=== PATIENT | male | born 1990 | race Caucasian/White ===

== ENCOUNTER 2019-08-27 01:22 | Observation (INO) ==
[2019-08-27] MEDS ORDERED: SODIUM CHLORIDE 0.9% 1000ML 1,000 ML IV SCH (01:45)
--- NOTE | 2019-08-27 01:53 | Emergency Department Note ---
Impression & Plan Altered mental status, Leukocytosis, Hyperglycemia, Elevated creatine kinase level ED Provider Note NAME: VIK CALDWELL AGE: 28 SEX: M ARRIVES VIA: Ambulance INFORMANT: [Patient] EMS, police ED PROVIDER(S): Quique Deleon MD CHIEF COMPLAINT: Altered mental status PLAN: Disposition: Admitted Condition: [Good] MEDICAL DECISION MAKING: The patient presented with altered mental status. He had hypoglycemia noted per EMS. The patient. He seemed to be responding to internal stimuli. Patient ad mitted to drinking a lot of alcohol and then "going for a run". He was found 17 miles from his residence. The patient was mildly hypothermic. Warming blanket was applied. He was hydrated. Chemistry panel and toxicology screens performed. Head CT and chest x-ray performed. CT head was negative and chest x-ray was unremarkable. CBC revealed a moderate leukocytosis. The patient had a mildly elevated but overall low alcohol level. Urine toxicology screen was pending. Tylenol and salicylate levels negative. Patient did have a mild elevation of his total CK. He was hydrated and observed. He was warmed. Given the patient's abnormal behavior and laboratory abnormalities further management in the hospital was deemed appropriate. Triage Nursing notes reviewed and agree them. [Additional history obtained from] EMS, police Vital Signs: reviewed and remarkable for [no significant abnormalities] Differential diagnosis: Infection, hypoglycemia, hypothermia, electrolyte abnormalities, overdose, toxicologic, cardiac sources, intracerebral event, neurologic, trauma, psychiatric as well as other pathologies. ER treatment provided: Warming blanket Saline hydration Diagnostics interpreted by me: ECG: Rate: 74 Rhythm:Normal sinus [place]:Normal QRS:Normal ST segements:No elevation or depression Other:No PACs or PVCs Cardiac Monitoring: Cardiac monitoring ordered by me: The patient was placed on continuous cardiac monitoring and observed. It revealed a normal sinus rhythm at 77 beats per minute without ectopy or evidence of dysrhythmia. Laboratory studies: [See below] CBC revealed leukocytosis of 17,000. Mild elevation of total CK. Mild hyperglycemia on chemistry panel. Urinalysis pending. Urine toxicology screen pending. Imaging studies: Chest x-ray. Findings: A chest x-ray was performed and revealed no pneumothorax, effusion, infiltrate, pulmonary edema, free air under the diaphragm, or wide mediastinum. Impression: No acute disease. Head CT: A noncontrast CT scan of the head was performed and was negative for tumor, fracture, intracranial hemorrhage, or other acute pathology. Consultation(s): Consultation was made with Dr. Hall of internal medicine. The patient was evaluated by the team in the emergency department admitted for further management. HPI: The patient is a 28 year old male who presents to the Emergency Room with complaints of altered mental status. Along the roadway by police. He police stated that they did search his residence and noted a lot of alcohol but no drug paraphernalia. The patient denied any trauma. He states he has been in good health recently. 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 Please note that the manager field investigations at the stated that he has been acting unusual over the last few weeks. He has been walking around on the rooftops and seemed to be arguing with himself. He was given oral glucose. The patient was uncooperative. Current pain is rated as 0/10. History is limited secondary to altered mental status. ROS: Patient denies headache, shortness of breath, chest pain, breathing difficulty, abdominal pain, vomiting, extremity pain, or other complaints. ROS is limited secondary to mental status. PAST MEDICAL HISTORY:Patient denies PAST SURGICAL HISTORY:Patient denies FAMILY HISTORY:Patient denies SOCIAL HISTORY:Residing at a motel currently. Drinks alcohol. HOME MEDICATIONS:Denies ALLERGIES:No known drug allergies VITALS:[See Below] PHYSICAL EXAMINATION: GENERAL: Awake, alert, mildly agitated-appearing, in no distress HENT: Normocephalic, atraumatic. Oropharynx unremarkable. EYES: Normal conjunctiva. Sclera non-icteric. NECK: Inspection normal. Non-tender. Supple. No nuchal rigidity. FROM. No masses. RESPIRATORY: Clear to auscultation. No wheezes. No rales. Normal respiratory effort. CARDIAC: Normal rate. Normal rhythm. No murmurs. No rubs. Extremities cool but well perfused. Pulses equal. No JVD. GI: Soft, non-distended. No tenderness to palpation. No rebound or guarding. No masses. RECTAL: Deferred. MUSCULOSKELETAL: Atraumatic except for an abrasion noted on the right great toe, plantar aspect. Chest examination reveals no tenderness. The back is symmetrical on inspection without obvious abnormality. There is no CVA tenderness to palpation. No joint edema. LOWER EXTREMITIES: Calves are equal size bilaterally and non-tender. No edema. No discoloration. NEURO: Altered sensorium. No sensory or motor deficits noted. GCS 15. SKIN: Very cool to the touch. No rash or jaundice noted. PSYCH: Inflated mood, labile affect. Nonlinear thought process. Responding to internal stimuli. ED COURSE: [Critical Care:] [None] Quique Deleon MD Past Med/Surg History Social History Feels Safe at Home: Yes Smoking Status: Current some day smoker Allergies Allergies Allergy/AdvReac Type Severity Reaction Status Date / Time No Known Allergies Allergy Unverified 08/27/19 01:43 Home Meds Home Medications Medication Instructions Recorded Confirmed No Known Home Medications 08/27/19 08/27/19 Results & Data (ED) Vital Signs Vital Signs - 24 hr 08/27/19 01:33 08/27/19 01:47 08/27/19 02:22 Pulse Rate 76 Pulse Rate [Right Finger] 67 Respiratory Rate 16 16 Respiratory Depth Normal Blood Pressure 106/69 Blood Pressure [Right Arm] 118/70 Blood Pressure Mean 81 Blood Pressure Mean [Right Arm] 86 Blood Pressure Position Lying Blood Pressure Position [Right Arm] Lying Pulse Oximetry 99 96 100 Oxygen Delivery Method Room Air Room Air Room Air Sepsis Recent Fever Within 48 Hours No Sepsis New/Unexplained Change in Mental Status No Sepsis Action Taken by Nursing No Action Required Laboratory Data Result diagrams: 08/27/19 01:58 08/27/19 01:58 Lab Results 08/27/19 08/27/19 08/27/19 Range/Units 01:29 01:58 01:58 WBC 17.75 H (4.8-10.8) K/uL RBC 4.84 (4.7-6.1) M/uL Hgb 14.0 (14.0-18.0) g/dL Hct 41.1 L (42-52) % MCV 84.9 (80-100) fL MCH 28.9 (25-34) pg MCHC 34.1 (32-36) g/dL RDW Std Deviation 40.4 (36.4-46.3) fL RDW Coeff of Angelina 13.1 (11.5-14.5) % Plt Count 192 (130-400) K/uL MPV 10.7 H (7.4-10.4) fL Immature Gran % (Auto) 0.4 % Neut % (Auto) 87.0 % Lymph % (Auto) 8.4 % [place] % (Auto) 3.9 % Eos % (Auto) 0.1 % Baso % (Auto) 0.2 % Immature Gran # (Auto) 0.07 H (0.00-0.02) K/uL Neut # (Auto) 15.45 H (1.4-6.5) K/uL Lymph # (Auto) 1.49 (1.2-3.4) K/uL [place] # (Auto) 0.69 H (0.11-0.59) K/uL Eos # (Auto) 0.02 (0-0.5) K/uL Baso # (Auto) 0.03 (0-0.2) K/uL Sodium 132 L (136-145) mmol/L Potassium 3.3 L (3.5-5.1) mmol/L Chloride 102 (98-107) mmol/L Carbon Dioxide 22 (21-32) mmol/L Anion Gap 8.0 (3-11) BUN 16 (7-18) mg/dl Creatinine 1.02 (0.6-1.4) mg/dl Est Cr Clr Drug Dosing 113.7 ml/min Est GFR ( Amer) 113.8 Est GFR (Non-Af Amer) 98.2 BUN/Creatinine Ratio 16.0 (10-20) Glucose 158 H (70-99) mg/dl POC Glucose 126 H (70-99) mg/dl Calcium 8.4 L (8.5-10.1) mg/dl Magnesium 2.0 (1.8-2.4) mg/dl Total Bilirubin 0.7 (0.2-1) mg/dl AST 40 H (15-37) U/L ALT 34 (12-78) U/L Alkaline Phosphatase 85 (45-117) U/L Total Creatine Kinase 547 H (39-308) U/L Troponin I < 0.015 (0-0.045) ng/ml Total Protein 7.2 (6.4-8.2) gm/dl Albumin 4.1 (3.4-5.0) gm/dl Globulin 3.1 (2.5-4.0) gm/dl Albumin/Globulin Ratio 1.3 (0.9-2) Salicylates (2.8-20) mg/dl Acetaminophen (10-30) ug/ml Ethyl Alcohol mg/dL (0-3) mg/dl 08/27/19 08/27/19 Range/Units 01:58 01:58 WBC (4.8-10.8) K/uL RBC (4.7-6.1) M/uL Hgb (14.0-18.0) g/dL Hct (42-52) % MCV (80-100) fL MCH (25-34) pg MCHC (32-36) g/dL RDW Std Deviation (36.4-46.3) fL RDW Coeff of Angelina (11.5-14.5) % Plt Count (130-400) K/uL MPV (7.4-10.4) fL Immature Gran % (Auto) % Neut % (Auto) % Lymph % (Auto) % [place] % (Auto) % Eos % (Auto) % Baso % (Auto) % Immature Gran # (Auto) (0.00-0.02) K/uL Neut # (Auto) (1.4-6.5) K/uL Lymph # (Auto) (1.2-3.4) K/uL [place] # (Auto) (0.11-0.59) K/uL Eos # (Auto) (0-0.5) K/uL Baso # (Auto) (0-0.2) K/uL Sodium (136-145) mmol/L Potassium (3.5-5.1) mmol/L Chloride (98-107) mmol/L Carbon Dioxide (21-32) mmol/L Anion Gap (3-11) BUN (7-18) mg/dl Creatinine (0.6-1.4) mg/dl Est Cr Clr Drug Dosing ml/min Est GFR ( Amer) Est GFR (Non-Af Amer) BUN/Creatinine Ratio (10-20) Glucose (70-99) mg/dl POC Glucose (70-99) mg/dl Calcium (8.5-10.1) mg/dl Magnesium (1.8-2.4) mg/dl Total Bilirubin (0.2-1) mg/dl AST (15-37) U/L ALT (12-78) U/L Alkaline Phosphatase (45-117) U/L Total Creatine Kinase (39-308) U/L Troponin I (0-0.045) ng/ml Total Protein (6.4-8.2) gm/dl Albumin (3.4-5.0) gm/dl Globulin (2.5-4.0) gm/dl Albumin/Globulin Ratio (0.9-2) Salicylates < 1.7 L (2.8-20) mg/dl Acetaminophen < 2 L (10-30) ug/ml Ethyl Alcohol mg/dL 15.0 H (0-3) mg/dl Administered Medications Discontinued Medications Sodium Chloride (Nss 1000ml) 1,000 mls @ 999 mls/hr IV .[id number] RANJAN Stop: 08/27/19 02:45 Last Admin: 08/27/19 02:06 Dose: 999 mls/hr Documented by: [id number] Discharge Plan Visit Data Chief Complaint: Altered Mental Status Stated Complaint: ALTERED MENTAL STATUS ED Provider: Quique Deleon Discharge Problem: Altered mental status, Leukocytosis, Hyperglycemia, Elevated creatine kinase level Forms Stand Alone Forms: My [employer] Prescriptions Prescriptions: No Action No Known Home Medications RF: 0
[2019-08-27 02:22] LABS: Hematocrit (blood only) 41.1 % (42-52); Mean Corpuscular Hemoglobin 28.9 pg (25-34); Mean Corpuscular Hgb Conc 34.1 g/dL (32-36); Mean Corpuscular Volume 84.9 fL (80-100); Mean Platelet Volume 10.7 fL (7.4-10.4); Platelet Count 192 K/uL (130-400); RDW Coefficient of Variation 13.1 % (11.5-14.5); RDW Standard Deviation 40.4 fL (36.4-46.3); Red Blood Count 4.84 M/uL (4.7-6.1); White Blood Count 17.75 K/uL (4.8-10.8)
[2019-08-27 02:43] LABS: Acetaminophen < 2 ug/ml (10-30); Alanine Aminotransferase 34 U/L (12-78); Albumin Level 4.1 gm/dl (3.4-5.0); Aspartate Aminotransferase 40 U/L (15-37); Blood Urea Nitrogen 16 mg/dl (7-18); Calcium 8.4 mg/dl (8.5-10.1); Carbon Dioxide 22 mmol/L (21-32); Chloride 102 mmol/L (98-107); Creatinine Clr Calc Pharmacy 113.7 ml/min; Est GFR (African American) 113.8; Est GFR (Non-African American) 98.2; Glucose 158 mg/dl (70-99); Potassium 3.3 mmol/L (3.5-5.1); Salicylate < 1.7 mg/dl (2.8-20); Sodium 132 mmol/L (136-145)
[2019-08-27 02:45] LABS: Basophils # (auto) 0.03 K/uL (0-0.2); Basophils % (auto) 0.2 %; Eosinophils # (auto) 0.02 K/uL (0-0.5); Eosinophils % (auto) 0.1 %; Immature Granulocytes # (auto) 0.07 K/uL (0.00-0.02); Immature Granulocytes % (auto) 0.4 %; Lymphocytes # (auto) 1.49 K/uL (1.2-3.4); Lymphocytes % (auto) 8.4 %; Monocytes # (auto) 0.69 K/uL (0.11-0.59); Monocytes % (auto) 3.9 %; Neutrophils # (auto) 15.45 K/uL (1.4-6.5)
[2019-08-27 02:48] LABS: Albumin Globulin Ratio 1.3 (0.9-2); Alkaline Phosphatase 85 U/L (45-117); Bilirubin,Total 0.7 mg/dl (0.2-1); Creatine Kinase 547 U/L (39-308); Globulin 3.1 gm/dl (2.5-4.0); Total Protein 7.2 gm/dl (6.4-8.2); Troponin I < 0.015 ng/ml (0-0.045)
[2019-08-27] MEDS ORDERED: SODIUM CHLORIDE 0.9% 1000ML 1,000 ML IV STA (03:17)
--- NOTE | 2019-08-27 04:32 | History & Physical Report ---
Date of Service August 27, 2019 Assessment & Plan (1) Altered mental status: Mauro is a 28-year-old male with no past medical history who was traveling to [place] to [place] and whose car broke down 3 weeks ago causing him to stay in a local motel for the last 3 weeks who presented by ambulance to [facility] for evaluation after he was found by police laying in the grass after a 17 mile run and who had reported confusion and bizarre behavior by the motel staff. Confusion, concern for altered mental status UTox screen pending, Alcohol 150 on admission Leukocytosis on admission, no Focal symptoms of infection. In context of his run and increase CK could represent stress demargination TSH pending Glucose in the 30s on admission, improved with dextrose administration. No change in mental status No acute metabolic acidosis or alkalosis Patient denies history of mental illness, thought process tangential with some bizarre speech and behavior. Specifically makes frequent mention of expansive thought with strong influence of being able to sense or expanded to people around him and with his music. Admit with one-to-one, psych consulted QT prolongation Mildly prolonged QT on admission Observe on telemetry while pending tox results Elevated creatinine kinase Suspected mile run prior to admission Repeat tomorrow, follow clinically Hypoglycemic episode As above, resolved with dextrose. DVT prophylaxis: Ambulation Diet: Regular CODE STATUS: Full code Disposition: Med telemetry (2) Leukocytosis: (3) Elevated creatine kinase level: History of Present Illness Chief Complaint: Unusual behavior, BIBA Primary Care Provider: NO PCP Mauro is seen at the bedside this morning. He was brought in by ambulance for concerns of unusual behavior. He reports that he is from [place] and was traveling to [place] when his car broke down about 3 weeks ago. He was not able to get a new car due to shots being closed due to COVID-19, so he rented out a motel room where he has been staying for 3 weeks. He reports that he felt like he needed to go for a run, and did not anticipate running far but is aware that he ended up running 17 miles from his hotel. He felt like he needed to lay down, and laid in the grass next to the road which caused police services to be called. Please services brought him back to his hotel, but hotel staff had continued concerns about unusual behavior both on return and in the preceding few days. Mauro endorses skinning his right big toe while running, but otherwise denies any pain or discomfort. Denies lightheadedness, dizziness. He is aware that his blood sugar was 36 by EMS, reports that he had not eaten today but had drank some alcohol. He reports that he normally drinks 2 drinks in a sitting, rarely more. He had a couple of more drinks with people over before going running prior to admission. He endorses vape use, denies other substance and marijuana use. 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 Reports that he feels like he needs to move out of the hotel into a different house because there are many mentally ill people there and when he plays music he "expands" and melds with them and does not think it has a good effect on him. He reports a feeling of shared experiences with those around him, and when he was running had "tingling in his butt so he thought someone else with a good but was around him" He denies auditory and visual hallucinations. Denies thoughts of self-harm or harming others. Denies history of mental illness. Family history: Denies family history including mental illness Medical history: Denies prior medical problems Medications: Denies chronic medications. Reports he has not used any acute or [id number] medications. 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 Beliefs That Will Affect Care: None Current Living Situation: Alone Current Living Situation Comment: [place] Feels Safe at Home: Yes Safety Concerns: Feels Safe At This Time Smoking Status: Never smoker Do You Dip or Chew Tobacco: No ; Second Hand Exposure: No ; Tobacco Cessation Education Requested by Patient: No Hx Alcohol Use: Yes Alcohol type: beer and hard liquor Hx Substance Use: No Review of Systems Review of Systems: Constitutional: Denies fever, chills, malaise, Eyes: Denies double vision, endorses chronic intermittent blurry near vision ENT: Denies ear pain, sore throat, tinnitus, ear ringing Cardiovascular: Denies Chest pain, chest pressure, palpitations, extremity swelling Respiratory: Denies shortness of breath, cough, sputum production, difficulty breathing Gastrointestinal: Denies abdominal pain, nausea, vomiting, constipation, diarrhea Genitourinary: Denies pain with urination, urinary urgency, urinary frequency Musculoskeletal: Denies weakness, muscle aches/pain, joint aches/pain Integumentary: Endorses skinned R hallux. Denies other rashes/lesions Neurological: Denies headache, numbness, tingling, focal weakness Physical Exam Physical Exam: General: A&Ox3. NAD. Cooperative.Thought process tangential, occasionally circumferential. Not responding to internal stimuli. Speech with normal prosody, not pressured. Mood 'fine'. Affect flat.Well-groomed, showered. HEENT: Atraumatic, normocephalic.Pupils equal and reactive to light and accommodation, extraocular movements intact, visual acuity grossly intact. Mucous membranes moist. Pulm: CTAB A&P. -wheezes, -rales, -rhonchi. Symmetrical chest rise. No increase work of breathing. No respiratory distress. Cardiac: RRR, -mrg. Radial pulses intact and symmetrical. Abdominal: Nontender, nondistended, soft. BS present. Extremities: Right hallux with superficial abrasion, trace crusting of blood on right toenails. Extremities otherwise atraumatic. Sensation to soft touch intact in distal extremities without asymmetry or deficit. Moving all extremities equally. PT and DP pulses intact bilaterally and symmetrical. Results & Data Results & Data ([facility]) Vital Signs (Past 12 Hours) Vital Signs Pulse Pulse Resp BP BP Pulse Ox 08/27/19 04:00 76 16 106/68 98 08/27/19 02:22 67 16 118/70 100 08/27/19 01:47 96 08/27/19 01:33 76 16 106/69 99 Supervising Physician Co-Signing Physician Notes Patient seen and examined, chart reviewed, case discussed with Dr. Edouard and I agree with his assessment and plan as documented above. Briefly, patient is a 28yo C male with no significant past medical or surgical history presenting with AMS, confusion as well as some mild rhabdo. Patient confused, mildly disorganized. He ran to [place] this evening then laid down to rest and was picked up by the police On exam he is afebrile, HD stable, NAD HEENT - NC/AT, PERRL, EOMI, MMM, Neck supple Heart - +S1/S2, regular, no m/r/g Lungs - CTA Abd - +BS, soft, NT/ND Ext - No edema, abrasion on great toe with dried blood, no active bleeding Neuro - nonfocal Labs and images reviewed Assessment/Plan: -concern for AMS secondary to underlying psychiatric issues -Check TSH, PO4, Mg, Ammonia, B12 and Folic Acid to complete AMS workup -Remainder of plan as above Resident Activity Tracking Resident Involvement: Resident Care Provided Care Provided: Adult Hospital Medicine
[2019-08-27] MEDS ORDERED: CARBOHYDRATES FOR HYPOGLYCEMIA PO PRN (05:37)
[2019-08-27] MEDS ORDERED: GLUCOSE 10 TABS/TUBE PO PRN (05:37)
[2019-08-27] MEDS ORDERED: POTASSIUM CHLORIDE 20 MEQ TABCR PO STA (05:37)
[2019-08-27] MEDS ORDERED: ACETAMINOPHEN 325 MG TAB PO PRN (05:37)
[2019-08-27] MEDS ORDERED: GLUCAGON FOR INJ 1 MG VIAL SQ PRN (05:37)
[2019-08-27] MEDS ORDERED: DEXTROSE 50% 50 ML SYRINGE IV PRN (05:37)
[2019-08-27] MEDS ORDERED: GLUCOSE 40% GEL 15 GM TUBE PO PRN (05:37)
--- NOTE | 2019-08-27 06:03 | XRay Report ---
XR chest 1V portable CLINICAL HISTORY: AMS dyspnea COMPARISON STUDY: No previous studies for comparison. FINDINGS: The bones soft tissues and hemidiaphragms are normal. The cardiomediastinal silhouette is n ormal. The lungs are clear. The pulmonary vasculature is normal. IMPRESSION: Negative chest. ACT 112: Negative or not required by law. The above report was generated using voice recognition software. It may contain grammatical, syntax or spelling errors. Electronically signed by: Luciano Fuentes M.D. 08/27/2019 6:01 AM
--- NOTE | 2019-08-27 06:04 | CT Scan Report ---
CT head/brain wo con CT DOSE: 537.48 mGy.cm HISTORY: Mental status change AMS TECHNIQUE: Multiaxial CT images of the head were performed without the use of intravenous contrast. A dose lowering technique was utilized adhering to the principles of ALARA. Comparison: None. Findings: The paranasal sinuses and mastoid air cells are clear. The calvarium and skull base are int act. The ventricles and sulci are within normal limits. There is no mass, hematoma, midline shift, or acute infarct. Impression: No acute intracranial abnormality. ACT 112: Negative or not required by law. The above report was generated using voice recognition software. It may contain grammatical, syntax or spelling errors. Electronically signed by: Luciano Fuentes M.D. 08/27/2019 6:03 AM
[2019-08-27 06:14] LABS: Appearance Urine Clear (Clear); Bilirubin Urine Negative (Negative); Blood Urine Negative (Negative); Color Urine Yellow; Glucose Urine UA Negative (Negative); Ketones Urine 2+ (Negative); Leukocyte Esterase Urine Negative (Negative); Nitrite Urine Negative (Negative); Protein Urine Negative (Negative); Specific Gravity Urine 1.017 (1.000-1.030); Urobilinogen Urine Negative (Negative)
[2019-08-27 06:36] LABS: Amphetamines+Metham, Urine Neg (Neg); Barbiturates, Urine Neg (Neg); Benzodiazepine, Urine Neg (Neg); Cocaine, Urine Neg (Neg); MDMA (Ecstacy), Urine Neg (Neg); Methadone, Urine Neg (Neg); Opiate, Urine Neg (Neg); Phencyclidine, Urine Neg (Neg)
--- NOTE | 2019-08-27 07:14 | Billing Data ---
Date of Service August 27, 2019 Coding Level of Care Code 58886 OBS Care - Level 2
[2019-08-27 10:38] LABS: Phosphorus 2.6 mg/dl (2.5-4.9); Thyroid Stimulating Hormone 0.461 uIu/ml (0.300-4.500)
[2019-08-27] MEDS: SODIUM CHLORIDE 0.9% 1000ML 1,000 ML IV SCH ×2 (10:38→18:32)
[2019-08-27 10:47] LABS: Folate (Folic Acid) 17.81 ng/ml (>5.38)
--- NOTE | 2019-08-27 10:58 | Psychiatric Consultation ---
Date of Consultation August 27, 2019 Impression / Recommendations Impression Dr. Alina Wood was directly involved in review and discussion of the patient's case and participated in medical decision making regarding treatment recommendations. RECOMMENDATIONS: 08/26 - Pt is not able to provide reliable information regarding his presentation or history of medical/psychiatric concerns. He does present as disorganized and tangential with looseness of associations, and rapid/hyperverbal speech. While this presentation may be related to an underlying psychiatric condition, it may also be related to various medical considerations: delirium resulting from rh abdomyolysis (CK has increased from 547 to 631 since admission), infection (WBC - 17.75), alcohol intoxication and possibility of withdrawal. Making a definitive determination regarding cause of AMS is complicated by the fact that the patient is not able to offer any reliable history at present - Pt has refused to sign any ROIs to allow for communication with family/supports in order to gather collateral information. Will continue to request his permission to speak with support in order to gain a clearer clinical picture. - Would suggest utilization of olanzapine, or other antipsychotic medication of choice, for episodes of agitation which threaten the safety of the patient or staff. Orders for 5mg PO dose and 10mg IM have been entered, but would suggest reserving use for only acute agitation. - While it cannot be determined at this time if involuntary psychiatric hospitalization will be required, 302 petition has been completed as his is presenting as altered, of risk of harm to self if discharged, and a psychiatric cause cannot be ruled out - of note, a patient can be held in the hospital if deemed to lack capacity to make the decision to go home, even without an active [address] - Capacity evaluation was conducted. Based on psychiatric assessment, patient does not seem to have any appreciation of the severity of his medical condition or his need for treatment. He is not able to explain to this provider what treatment has been recommended, even after this provider repeated explanation several times. He is demonstrating an inability to rationally manipulate information or present a reality-based understanding of the world around him. It appears that the patient does not have capacity to make appropriate decisions regarding his medical treatment - specifically a decision to be discharged AMA. Pt has verbalized a desire to leave the hospital soon, but has not yet offered a clear request for discharge. Capacity evaluation should be repeated periodically, as his condition may global director air and climate change the course of his admission. Guidance for capacity evaluation is provided below: As a reminder, any medical provider involved in the patient's care can make a determination regarding capacity to make a specific treatment decision at a specific point in time. Capacity for appropriate medical decision-making can vary based on patient's present state, but also on the weight of the specific decision. In order for a patient to have capacity to make a specific treatment decision, they must meet the four following criteria: ability to recall/under stand information related to the decision being made, appreciate their condition as well as the consequences of their decision, demonstrate ability to rationally process information being provided, and clearly communicate a choice. Our team would be happy to coordinate future consultation visits to occur at time of these conversation, in order to best facilitate a clear understanding of patient's present capacity. Risk Factors Assessment Do You Have Access To A Gun?: Yes (believes this to be his "third amendment right") Psych History Identifying Data 28-year-old male admitted medically on 08/27/2019 after being brought to the ED via ambulance for altered mental status. It was reported patient had been found by police with reports patient was appearing confused and demonstrating bizarre behavior. Psychiatric consultation was requested to evaluate patient for "AMS, disorganized thinking." Chief Complaint "I'm in th street." History of Present Illness Mauro "Juan Hugo is a 28-year-old male admitted medically on 08/27/2019 after presenting to the ED with altered mental status. It is reported that the patient was found by police to be laying on the ground about 17 miles from the hotel he reports he has been staying at. ED documentation suggests hotel staff had been observing bizarre behavior and confusion. Pt was reportedly out for a run prior to him being found by police and brought to the ED for further evaluation. Patient's case was reviewed with psychiatric nurse liaison, who indicated the patient was guarded and suspicious for the duration of their encounter. Pt did admit that he had been traveling, but his car broke down about 3 weeks ago and he has been unable to get it fixed due to the shutdowns related to the COVID-19 outbreak. He did report to our liaison that the " ambulance ride was part of the plan." Pt was seen for psychiatric evaluation on consult service - this PA-C was accompanied by our psychiatric liaison. Pt is alert and interactive, observed to be engaging in conversation with 1:1 prior to our team entering his room. Pt begins conversation by stating he believes he is "in [address] Pt then begins rambling about various events that he states have occurred over the past few weeks. Pt states "I've lived 20 years of stuff in the past 3 weeks." Unfortunately, patient's conversation is difficult to follow and his thoughts seem rather bizarre. This provider engaged with the patient by agreeing that it seems he has been through a lot recently, to which he responds "yes, through a lot. It's the through that brought me here." Pt continues to be tangential and incoherent, but expresses these thoughts with a nonchalant attitude. Pt states that he was driving from [facility] with anticipate destination of [place], when his car broke down. Pt states he had been staying at a hotel and made the decision to go for a run. Pt states he made the decision to stop and lay in the grass "to rest up until the sun wilma, and start again." During this explanation, he is preoccupied with themes of long-distance running clubs and the NRA - stating he was concerned that if he did not formally join a group that they would take away his rights to automatic weapons. Pt continues to verbalize odd, disconnected statements - such as "I only ate half of the pizza, which means I'll have to date the Ukrainian girl and I never even wanted the danishes at the hotel." He also states he spoke with his parents about the decision to purchase a new car - and states "Ralph has a rainbow display right now, it's the way to go if you're homosexual, but I am staying far away from that." He goes on to make several derogatory statements of homosexual themes. Pt was challenged by this provider, who explained concern that patient's thoughts were not seeming to clearly connect. Pt appeared confused and states, "that's because I'm not simply viewing the world, I'm living it. I don't just wait and observe." Pt states that he does not have a good relationship with his family (although states he spoke with his mother via phone in the last 1-2 days), as he reports several family members have drug abuse histories and that the patient has been in "a cycle of avoidance, why would I talk to them now?" He is unwilling to sign ROIs to allow for communication with any outpatient supports at this time. Pt did admit to previous therapy sessions, but is ambivalent about previous appointments with a psychiatric prescriber. When in therapy, patient states "I was there, I saw both the light and the dark." He also provides ambivalent reports regarding any history of psychiatric medications. When discussing this topic, patient reads this [employer] medial coat and sounds out "psychiatry." He then states, "it's finally happening, Giovani meets the psychiatrist. But that can't work because my name has an "L" in it. They just want me to play the letter veronica e." Pt did deny active SI presenting. He was not able to provide a significant history of psychiatric symptoms due to his present state. Pt does indicate awareness that IV fluids have been recommended for him. He states he had received 1 bag already, and suggests that there are specific events that will occur if he were to accept the second bag. This provider attempted to explain the current concern surrounding "tissue breakdown" - and patient began reciting several phrases all beginning with "T-B" - "Gavin Fan", "Auburn Garrett", "Tissue Breakdown." Pt was informed that our service would be suggesting medications should he experience episodes of agitation. Pt states, "thank you, but I will not be taking those." Pt was informed that the medications can be used if patient should present as a safety risk to self or others. Pt states he believes the best treatment for him is to actually increase his activity level at this time. Past Psychiatric History Previous Psych History: Unknown - patient does indicate that he may have seen a therapist once in the past. He does not verbalize a clear history of psyc hiatric evaluations or hospitalizations. Current Psychiatric Diagnosis: Unknown Outpatient Services: None Do You Have Access To A Gun?: Yes (believes this to be his "third amendment right") Past Medication Trials: Patient is unable to offer information regarding history of psychiatric medication trials. Allergies Allergy/AdvReac Type Severity Reaction Status Date / Time No Known Allergies Allergy Unverified 08/27/19 01:43 Home Medications Home Medications Medication Instructions Recorded Confirmed Type No Known Home Medications 08/27/19 08/27/19 History Family History Although reliability of information is uncertain, patient does mention a "suicidal brother". Substance Abuse History Unable to answer these questions at time of encounter - did deny use of illicit substances during discussion with psychiatric liaison. He did admit to consuming "1-2 drinks per day" Personal History Living Arrangements: [facility] Living Arrangements Comments: Pt is admitting that he is currently in transition. He initially reported he was living in [place], but now states he drove to [place] from [facility]. Pt indicates he intended to drive to [place] until his car broke down. 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) Patient History Social History Preferred Language: Azeri Communication Ability: Unable Chargemaster Specialist Required: No Current Living Situation: Alone Current Living Situation Comment: [place] Feels Safe at Home: Yes Safety Concerns: Feels Safe At This Time Smoking Status: Never smoker Do You Dip or Chew Tobacco: No ; Second Hand Exposure: No ; Tobacco Cessation Education Requested by Patient: No Hx Alcohol Use: Yes Alcohol type: beer and hard liquor Hx Substance Use: No Physical Exam Psychiatric: Orientation: alert, oriented to person and oriented to place Apperance: appropriately dressed and appropriately groomed Fit, male of athletic healthy-appearing weight, seated on bed in no acute distress. Pt is appropriately dressed for setting, wearing a hospital gown on top and black pants on the bottom. He has longer blonde hair that is pulled out of his face by his mask/face shield. While grooming appears adequate, level of hygiene is less than ideal, as feet are dirty and appear to be covered with blood. Eye Contact: good eye contact Motor Behavior: no abnormal motor movements (observed while resting in bed) Speech: + pressured speech (rapid, hyperverbal ) Affect: + labile affect (expansive) Mood: no depressed mood ("I'm good, I just think I need to be more active") Thought Process: + tangential thought process, + flight of ideas and + looseness of associations; + thought process not linear or logical and + thought process not clear or coherent Thought Content: + preoccupation (with the NRA, long-distance running, and homosexual themes ), + paranoid, + delusions and + persecution Suicidal Thoughts: denies suicidal thoughts and denies suicidal intent Homicidal Thoughts: denies homicidal thoughts Question of if patient is responding to internal stimuli Cognition: + attention not intact and + language not intact Insight: + impaired insight Judgement: + impaired judgement Vital Signs (Past 24 Hours): Last Vital Signs Temp 36.5 C 08/27/19 07:00 Pulse 82 08/27/19 07:00 Resp 18 08/27/19 07:00 BP 110/76 08/27/19 07:00 Pulse Ox 100 08/27/19 07:00 Review of Systems Pt is unable to participate in full review of systems at this time due to level of disorganization. He does indicate that his foot is bleeding and that he needs Purel for his "clammy hands", but does not offer any additional physical complaints. Results & Data (PSY) Medications Administered Glucose (Glucose 40%) 15 - 30 gm PO UD PRN; Protocol PRN Reason: Hypoglycemia Protocol Stop: 09/26/19 05:36 Last Admin: 08/27/19 08:32 Dose: 15 gm Documented by: [id number] Sodium Chloride (Nss 1000ml) 1,000 mls @ 80 mls/hr IV .[id number] RANJAN Stop: 08/28/19 06:36 Last Admin: 08/27/19 10:38 Dose: Not Given Documented by: [id number] Coding Level of Care Code 59352 U Intl Hosp Care Lvl 2
--- NOTE | 2019-08-27 11:50 | Electrocardiogram Report ---
Test Reason : Blood Pressure : / mmHG Vent. Rate : 074 BPM Atrial Rate : 074 BPM P-R Int : 132 ms QRS Dur : 092 ms QT Int : 452 ms P-R-T Axes : 067 078 071 degrees QTc Int : 501 ms Poor data quality, interpretation may be adversely affected Normal sinus rhythm Normal ECG No previous ECGs available Confirmed by Behzad Lindsey ([id number]) on 08/27/2019 11:50:20 AM Referred By: REFERRED SELF Confirmed By:Etienne Lindsey
[2019-08-27] MEDS ORDERED: OLANZapine 5 MG TABLET PO PRN (12:29)
[2019-08-27] MEDS ORDERED: OLANZapine 10 MG/2.1 ML SDV IM PRN (12:31)
[2019-08-27] MEDS ORDERED: OLANZapine 5 MG TABLET PO ONE (15:24)
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
[2019-08-28 08:28] LABS: Hematocrit (blood only) 37.2 % (42-52); Hemoglobin 12.4 g/dL (14.0-18.0); Mean Corpuscular Hemoglobin 28.9 pg (25-34); Mean Corpuscular Hgb Conc 33.3 g/dL (32-36); Mean Corpuscular Volume 86.7 fL (80-100); Mean Platelet Volume 10.7 fL (7.4-10.4); Platelet Count 150 K/uL (130-400); RDW Coefficient of Variation 13.8 % (11.5-14.5); RDW Standard Deviation 43.7 fL (36.4-46.3); Red Blood Count 4.29 M/uL (4.7-6.1); White Blood Count 8.66 K/uL (4.8-10.8)
--- NOTE | 2019-08-28 12:14 | Electrocardiogram Report ---
Test Reason : Blood Pressure : / mmHG Vent. Rate : 056 BPM Atrial Rate : 056 BPM P-R Int : 142 ms QRS Dur : 088 ms QT Int : 444 ms P-R-T Axes : 075 074 067 degrees QTc Int : 428 ms Sinus bradycardia Otherwise normal ECG When compared with ECG of 27-AUG-2019 01:32, QT has shortened Confirmed by Behzad Lindsey ([id number]) on 08/28/2019 12:13:43 PM Referred By: REFERRED SELF Confirmed By:Etienne Lindsey
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
== END 2019-08-29 12:17 ==
LOC: ED 01:22 → 3E 01:22 → SUATTDRO 04:42 → 3E 05:14